=== PATIENT | male | born 1945 | race Hispanic/Latino ===

== ENCOUNTER 2018-03-07 08:56 | Emergency (ER) | payer MEDICARE, MEDICAID ==
[~2018-03-07] VITALS: Ht 165.1 cm; Wt 70.3 kg
[~2018-03-07 08:56] MED LIST: ASPIRIN EC81 MG PO; CIPROFLOXACIN500 MG PO; GLIMEPIRIDE4 MG PO; LISINOPRIL40 MG PO; METFORMIN HCL500 MG PO; NORCO 5-325 TA1 EACH PO; PYRIDIUM200 MG PO; SIMVASTATIN20 MG PO; TAMSULOSIN HCL0.4 MG PO
[2018-03-07] MEDS ORDERED: FLOMAX0.4 MG PO (10:26)
[2018-03-07] MEDS ORDERED: LEVAQUIN500 MG PO (10:26)
== END 2018-03-07 10:37 | disposition home or self-care (01) ==
LOC: ED 08:56
PROC: 4A0D7LZ Measurement of Urinary Volume, Via Natural or Artificial Opening (ICD-10-PCS; principal; 2018-03-07)
DX: N39.0 Urinary tract infection, site not specified (principal); R31.9 Hematuria, unspecified; E11.9 Type 2 diabetes mellitus without complications; E78.00 Pure hypercholesterolemia, unspecified; I10 Essential (primary) hypertension; Z79.899 Other long term (current) drug therapy; Z79.82 Long term (current) use of aspirin; Z79.84 Long term (current) use of oral hypoglycemic drugs
CPT/HCPCS: 51798; 76870; 81001; 99284

== ENCOUNTER 2020-03-05 11:05 | Emergency (ER) | payer MEDICARE, MEDICAID ==
[~2020-03-05] VITALS: Ht 165.1 cm; Wt 74.4 kg
[~2020-03-05 11:05] MED LIST changes: +CIPRO250 MG PO; +FLOMAX0.4 MG PO; +INVOKAMET 50-11 EACH PO; +LEVAQUIN500 MG PO
[2020-03-05] MEDS ORDERED: FAMCICLOVIR500 MG PO (12:42)
== END 2020-03-05 12:52 | disposition home or self-care (01) ==
LOC: ED 11:05
DX: R07.0 Pain in throat (principal); E11.9 Type 2 diabetes mellitus without complications; I10 Essential (primary) hypertension; Z79.899 Other long term (current) drug therapy; Z79.84 Long term (current) use of oral hypoglycemic drugs
CPT/HCPCS: 99283

== ENCOUNTER 2022-12-25 11:56 | Day surgery (SDC) | payer MEDICARE, MEDICAID ==
[~2022-12-25 11:56] MED LIST changes: +FAMCICLOVIR500 MG PO
[2022-12-25 12:23] VITALS: BP 160/63
[2022-12-25] MEDS ORDERED: VAZALORE81 MG PO (12:28)
--- NOTE | 2022-12-25 13:48 | NUR ---
12/25/22 1348 Ifrah Drake 1344- PT ARRIVES TO PACU REACTIVE TO STIMULI. PT FALLS INSTANTLY BACK TO SLEEP WHEN NOT BEING STIMULATED. RESP EVEN AND UNLABORED. OXYGEN SAT 100% ON 2L VIA NC. 1348- OXYGEN TITRATED OFF. OXYGEN SAT REMAINS AT 100% ON 2L VIA NC.
[2022-12-25 14:46] VITALS: BP 175/78
--- NOTE | 2022-12-27 10:59 | OR ---
[facility] [address] [place], [place] [address] Signed DATE OF OPERATION: 12/25/2022 SURGEON: Miroslava Lee MD PREOPERATIVE DIAGNOSES: 1. Episodic constipation. 2. Previous colonoscopy in 2014. POSTOPERATIVE DIAGNOSIS: Normal colon to cecum except for minimal diverticulosis. PROCEDURE: Total colonoscopy to cecum. ANESTHESIA: Intravenous sedation; fentanyl 100 mcg and Versed 5 mg. INDICATIONS: This 77-year-old man is a patient of Eileen Garcia and well known to me from the past. He last underwent colonoscopy in September of 2014. He has no rectal bleeding but does continue to have constipation. He takes no specific remedy for it. He has used MiraLAX from time to time but not often. He does have pain on defecation from time to time, but no actual bleeding recently. He has no family history of colon cancer. He is admitted to undergo colonoscopy. He understands the risk of bleeding, infection, and perforation. FINDINGS: The prep was adequate. Complete colonoscopy was undertaken of the cecum with full intubation of the cecum. Good visualization of the ileocecal valve and appendiceal orifice was noted. There was no evidence of polyps or cancer or colitis. He did have several diverticula scattered throughout the colon. DESCRIPTION OF PROCEDURE: The patient was brought to the endoscopy suite and placed in the lateral decubitus position, given intravenous sedation to the point of slurred speech and nystagmus. Digital rectal examination was normal. An Olympus video colonoscope was passed in the rectum and manipulated throughout the colon ultimately intubating the cecum itself. The ileocecal valve and appendiceal orifice were normal. The scope was withdrawn from that point and examination throughout Electronically Signed By: MIROSLAVA LEE MD 12/27/22 1059 PATIENT NAME: SCOTT GARCIA OPERATIVE REPORT DATE OF : 49 REPORT #: [id number] PHYSICIAN: MIROSLAVA LEE MD PCP: KAPIL SHAH MD REPORT IS CONFIDENTIAL AND NOT TO BE RELEASED WITHOUT AUTHORIZATION [facility] [address] [facility] [place], [place] [address] Signed showed no sign of abnormality other than a few scattered diverticula. Retroflexed view of the rectum was normal. Scope was removed and the patient was taken to the recovery room in good condition. CONCLUDING DIAGNOSIS: No evidence of polyps, cancer or obstruction. PLAN: Recommend MiraLAX one scoop p.o. daily to maintain bowel function. Repeat colonoscopy in seven years would be reasonable if clinically appropriate at an advanced age. MD LIGIA Laughlin/FLOYD /[id number] cc: ZIGGY [employer] Copies: ~ Electronically Signed By: MIROSLAVA LEE MD 12/27/22 1059 PATIENT NAME: SCOTT GARCIA OPERATIVE REPORT DATE OF : 49 REPORT #: [id number] PHYSICIAN: MIROSLAVA LEE MD PCP: KAPIL SHAH MD REPORT IS CONFIDENTIAL AND NOT TO BE RELEASED WITHOUT AUTHORIZATION
== END 2022-12-25 14:54 | disposition home or self-care (01) ==
LOC: DS 11:56 → OPS 11:56 → DS 13:00 → OPS 14:54
PROVIDERS: ATTEND Surgery
DX: K57.30 Diverticulosis of large intestine without perforation or abscess without bleeding (principal); K59.09 Other constipation; I10 Essential (primary) hypertension; Z79.82 Long term (current) use of aspirin; Z79.899 Other long term (current) drug therapy
CPT/HCPCS: 99153; G0500; J2250; J3010

== ENCOUNTER 2025-07-27 07:40 | Day surgery (SDC) | payer MEDICARE, OTHER ==
[~2025-07-27] VITALS: Ht 167.6 cm; Wt 68.0 kg
[~2025-07-27 07:40] MED LIST changes: +CEFAZOLIN SODIUM 2 GM in SODIUM CHLORIDE 0.9% 100 ML IV SCH; +CIPRO500 MG PO; +GLIMEPIRIDE2 MG PO; +GLYBURIDE5 MG PO; +IBLOOD GLUCOSE TEST STRIP 1 EA TEST VI PRN; +JANUMET 50-1,01 EACH PO; +LACTATED RINGER'S 1,000 ML IV SCH; +LIDOCAINE HCL 1% 5 ML SDV INJ ONE; +LISINOPRIL-HCT1 EACH PO; +VAZALORE81 MG PO
[2025-07-27 08:05] VITALS: BP 177/68
[2025-07-27] MEDS ORDERED: TRAMADOL HCL 50 MG TAB PO PRN (08:30)
[2025-07-27] MEDS ORDERED: OXYCODONE/APAP 5/325 TAB PO PRN (08:30)
[2025-07-27] MEDS ORDERED: LIDOCAINE 2% VISCOUS 6 ML SYR TOP ONE (08:30)
[2025-07-27] MEDS ORDERED: HYDROmorphone HCL 1 MG/ML SYR IV PRN ×2 (08:30→09:45)
[2025-07-27] MEDS ORDERED: fentaNYL citrate 100 MCG/2 ML VIAL ONE (09:34)
[2025-07-27] MEDS ORDERED: LIDOCAINE HCL 2% 5 ML SDV ONE (09:34)
[2025-07-27] MEDS ORDERED: NALOXONE HCL 0.4 MG SYR IV PRN (09:45)
[2025-07-27] MEDS ORDERED: PROCHLORPERAZINE EDISYLATE 10 MG/2 ML VIAL IV PRN (09:45)
[2025-07-27] MEDS ORDERED: fentaNYL citrate 50 MCG/ML SDV IV PRN (09:45)
[2025-07-27] MEDS ORDERED: IBLOOD GLUCOSE TEST STRIP 1 EA TEST VI PRN (09:45)
[2025-07-27 12:22] VITALS: BP 164/74
--- NOTE | 2025-07-27 12:27 | NUR ---
07/27/25 Cassie Quintanilla 1038- PT PRESENTS TO PACU, SEMI SANDOVAL POSITION, NON REACTIVE TO STIMULUS. OPA IN PLACE, BREATHING EVEN AND NON LABORED, O2 IN PLACE AT 6L PER MASK. LR INFUSING TO RW IV. ABD SOFT, NON DISTENDED. SUPRAPUBIC CATHETER IN PLACE WITH DRESSING CDI, DRAINING CLEAR YELLOW URINE. ALL MONITORS IN PLACE. 1058- PT WAKES ON OWN, OPA REMOVED. O2 LEFT IN PLACE, PT MADE AWARE SURGERY COMPLETE. BACK TO RESTING. 1113- PT WAKES OFF AND ON, EASILY TO VERBAL STIMULI. SAT UP IN BED, ORANGE JUICE PROVIDED, TOLERATING WELL. 1118- SON BROUGHT BACK TO PACU TO DISCUSS D/C INSTRUCTIONS AND TRANSLATE. PT AND VERBALIZED UNDERSTANDING OF INSTRUCTIONS. SON TO HELP PT GET DRESSED. 1136- PT DRESSED, SON WENT TO GET THE CAR, CATHETER RESECURED MORE PROXIMAL THIGH AND CLOSER TO GROIN. SALINE LOCK REMOVED, TIP INTACT, DRESSING APPLIED. TRANSFERRED TO WHEELCHAIR WITH STEADY GAIT, TAKEN OUT TO CAR WITH ALL BELONGINGS AND RX.
== END 2025-07-27 11:36 | disposition home or self-care (01) ==
LOC: DS 07:40
PROVIDERS: ATTEND Urology
PROC: 0T9B80Z Drainage of Bladder with Drainage Device, Via Natural or Artificial Opening Endoscopic (ICD-10-PCS; principal; 2025-07-27 08:20)
DX: R33.9 Retention of urine, unspecified (principal); E11.9 Type 2 diabetes mellitus without complications; I10 Essential (primary) hypertension; E78.5 Hyperlipidemia, unspecified
CPT/HCPCS: 00910; J0688; J2003; J2405; J2704; J3010; J7121